=== PATIENT | female | born 1975 | race Caucasian/White ===

== ENCOUNTER 2018-02-27 01:34 | Emergency (ER) | payer OTHER ==
[~2018-02-27] VITALS: Ht 175.3 cm; Wt 86.2 kg
--- OUTSIDE RECORDS SUMMARY | ~2018-02-27 | XMS | Clinical Summary ---
Demographics + + + | Address | [address] | | | [place] [address] | + + + | Home Phone | | + + + | Preferred Language | Unknown | + + + | Marital Status | | + + + | Yarsanism Affiliation | Unknown | + + + | Race | Unknown | + + + | Ethnic Group | Unknown | + + + Author + + + | Author | [facility] | + + + | Organization | [facility] | + + + | Address | Unknown | + + + | Phone | Unavailable | + + + Support + + +---------+ + | Name | Relationship | Address | Phone | + + +---------+ + | Nuvia Manjarrez | ECON | Unknown | | + + +---------+ + | Ricki Vargas | ECON | Unknown | | + + +---------+ + Care Team Providers + +------+ + | Care Assistant Branch Manager Name | Role | Phone | + +------+ + PP | Unavailable | + +------+ + Allergies + + + + + + | Active Allergy | Reactions | Severity | Noted | Comments | | | | | Date | | + + + + + + | Penicillins | Hives | High | 06/16/20 | | | | | | 13 | | + + + + + + Current Medications + + +---------+---------+------+------+-------+ | Prescription | Sig. | Disp. | Refills | Star | End | Statu | | | | | | t | Date | s | | | | | | Date | | | + + +---------+---------+------+------+-------+ | | Take 1 tablet by | | | | | Activ | | HYDROcodone-acetamin | mouth every 6 (six) | | | | | e | | ophen (NORCO) 5-325 | hours as needed. | | | | | | | MG per tablet | | | | | | | + + +---------+---------+------+------+-------+ | predniSONE | Take 20 mg by mouth | | | | | Activ | | (DELTASONE) 20 MG | daily with | | | | | e | | tablet | breakfast. | | | | | | + + +---------+---------+------+------+-------+ | tizanidine | Take 1 capsule by | 30 | 0 | 09/1 | | Activ | | (ZANAFLEX) 4 MG | mouth 3 (three) | capsule | | 8/20 | | e | | capsuleIndications: | times daily as | | | 13 | | | | Cervical strain | needed for Muscle | | | | | | | | spasms. | | | | | | + + +---------+---------+------+------+-------+ Active Problems No known active problems Family History + + +------+ + | Medical History | Relation | Name | Comments | + + +------+ + | Diabetes | Father | | | + + +------+ + | High cholesterol | Father | | | + + +------+ + | Hypertension | Father | | | + + +------+ + + +------+--------+ + | Relation | Name | Status | Comments | + +------+--------+ + | Daughter | | Alive | | + +------+--------+ + | Daughter | | Alive | | + +------+--------+ + | Father | | Alive | | + +------+--------+ + | Mother | | Alive | | + +------+--------+ + | Sister | | Alive | | + +------+--------+ + | Son | | Alive | | + +------+--------+ + Social History + +-------+ +--------+------+ | Tobacco Use | Types | Packs/Day | Years | Date | | | | | Used | | + +-------+ +--------+------+ | Never Smoker | | | | | + +-------+ +--------+------+ + + +---------+ + | Alcohol Use | Drinks/We | oz/Week | Comments | | | ek | | | + + +---------+ + | No | | | | + + +---------+ + + + + | Sex Assigned at | Date Recorded | | | | + + + | Not on file | | + + + Last Filed Vital Signs + + + + | Vital Sign | Reading | Time Taken | + + + + | Blood Pressure | 102/70 | 06/16/2013 4:22 PM PDT | + + + + | Pulse | 64 | 06/16/2013 4:22 PM PDT | + + + + | Temperature | 36.7 C (98.1 F) | 06/16/2013 4:22 PM PDT | + + + + | Respiratory Rate | 16 | 06/16/2013 4:22 PM PDT | + + + + | Oxygen Saturation | 98% | 06/16/2013 4:22 PM PDT | + + + + | Inhaled Oxygen | - | - | | Concentration | | | + + + + | Weight | 93.4 kg (206 lb) | 06/16/2013 4:22 PM PDT | + + + + | Height | 171.5 cm (5' 7.5") | 06/16/2013 4:22 PM PDT | + + + + | Body Mass Index | 31.79 | 06/16/2013 4:22 PM PDT | + + + + Plan of Treatment + + + + + | Health Maintenance | Due Date | Last Done | Comments | + + + + + | Vaccine: | | | | | Dtap/Tdap/Td (1 - | 6 | | | | Tdap) | | | | + + + + + | Cervical Cancer | | | | | Screening (Pap) | 8 | | | + + + + + | Vaccine: Influenza | | | | | (Season Ended) | 8 | | | + + + + + Results Not on filefrom Last 3 Months
--- OUTSIDE RECORDS SUMMARY | ~2018-02-27 | XMS | Clinical Summary ---
Demographics + + + | Address | [address] | | | [place] [address] | + + + | Home Phone | | + + + | Preferred Language | Unknown | + + + | Marital Status | | + + + | Restorationism Affiliation | Unknown | + + + | Race | Unknown | + + + | Ethnic Group | Unknown | + + + Author + + + | Author | [facility] | + + + | Organization | [facility] | + + + | Address [...] Team Providers + +------+ + | Care Expert Medical Writer Name | Role | Phone | + [...]
[~2018-02-27 01:34] MED LIST: ALEVE220 MG PO; CLINDAMYCIN HC150 MG PO; CYCLOBENZAPRINE10 MG PO; IBUPROFEN400 MG PO; MELOXICAM15 MG PO
[2018-02-27] MEDS ORDERED: SERTRALINE HCL50 MG PO (01:49)
== END 2018-02-27 02:52 | disposition home or self-care (01) ==
LOC: ED 01:34
DX: J20.9 Acute bronchitis, unspecified (principal); Z88.0 Allergy status to penicillin; Z79.899 Other long term (current) drug therapy
CPT/HCPCS: 99282

== ENCOUNTER 2018-03-17 03:45 | Emergency (ER) | payer OTHER ==
[~2018-03-17] VITALS: Ht 175.3 cm; Wt 90.7 kg
--- OUTSIDE RECORDS SUMMARY | ~2018-03-17 | XMS | Clinical Summary ---
Demographics + + + | Address | [address] | | | [place] [address] | + + + | Home Phone | | + + + | Preferred Language | Unknown | + + + | Marital Status | | + + + | Yazdanism Affiliation | Unknown | + + + | Race | Unknown | + + + | Ethnic Group | Unknown | + + + Author + + + | Author | [facility] [facility] | + + + | Organization | [facility] | + + + | Address [...] Team Providers + +------+ + | Care Elementary School Band Director Name | Role | Phone | + [...]
--- OUTSIDE RECORDS SUMMARY | ~2018-03-17 | XMS | Clinical Summary ---
Demographics + + + | Address | [address] | | | [place] [address] | + + + | Home Phone | | + + + | Preferred Language | Unknown | + + + | Marital Status | | + + + | Synagogue Affiliation | Unknown | + + + | Race | Unknown | + + + | Ethnic Group | Unknown | + + + Author + + + | Author | [facility] [facility] | + + + | Organization | [facility] | + + + | Address [...] Team Providers + +------+ + | Care Software Configuration Specialist Name | Role | Phone | + [...]
[~2018-03-17 03:45] MED LIST changes: +SERTRALINE HCL50 MG PO
[2018-03-17] MEDS ORDERED: MOBIC15 MG PO (03:56)
--- NOTE | 2018-03-17 13:32 | EKG ---
[facility] [address] [place], [place] [address] Signed Unusual P axis, possible ectopic atrial rhythm Left axis deviation Abnormal ECG When compared with ECG of 17-MAR-2018 03:54, (Unconfirmed) No significant change was found Confirmed by BHARAT GAMEZ MD ([id number]) on 03/17/2018 1:32:41 PM Electronically Signed By: BHARAT GAMEZ MD 03/17/18 1332 PATIENT NAME: LUPIS RODAS Electrocardiogram DATE OF : 79 PHYSICIAN: BHARAT GAMEZ MD REPORT #: [id number] REPORT IS CONFIDENTIAL AND NOT TO BE RELEASED WITHOUT AUTHORIZATION
--- NOTE | 2018-03-17 13:32 | EKG ---
[facility] [address] [facility] [place] [address] Signed Unusual P axis, possible ectopic atrial rhythm Left axis deviation Abnormal ECG No previous ECGs available Confirmed by BHARAT GAMEZ MD ([id number]) on 03/17/2018 1:32:06 PM Electronically Signed By: BHARAT GAMEZ MD 03/17/18 1332 PATIENT NAME: LUPIS RODAS Electrocardiogram DATE OF : [birth year] PHYSICIAN: BHARAT GAMEZ MD REPORT #: [id number] REPORT IS CONFIDENTIAL AND NOT TO BE RELEASED WITHOUT AUTHORIZATION
== END 2018-03-17 06:54 | disposition home or self-care (01) ==
LOC: ED 03:45
DX: R06.02 Shortness of breath (principal); D50.9 Iron deficiency anemia, unspecified; Z88.0 Allergy status to penicillin; Z79.899 Other long term (current) drug therapy
CPT/HCPCS: 71046; 80048; 83735; 85025; 93005; 93010; 99283

== ENCOUNTER 2018-04-13 08:39 | Inpatient (IN) | payer OTHER ==
[~2018-04-13] VITALS: Ht 172.7 cm; Wt 94.8 kg
[~2018-04-13 08:39] MED LIST changes: +MOBIC15 MG PO
--- NOTE | 2018-04-13 16:00 | HP ---
[facility] [address] [place], [place] [address] Signed ADMISSION DATE: 04/13/2018 ADMITTING DIAGNOSIS: Acute calculous cholecystitis. HISTORY OF PRESENT ILLNESS: This 42-year-old obese woman awakened at approximately 4:00 a.m. today with a significant epigastric and right subcostal pain. She had some associated nausea, but no vomiting. She presented to the emergency room where she was thoroughly evaluated by Dr. Erazo and a gallbladder ultrasound was obtained. Lab studies were obtained as well. The gallbladder ultrasound showed a single 16 mm gallstone wedged in the infundibulum of the gallbladder with no other sign of stone. Her lab studies were normal including CBC and Chem profile. The patient has not had antecedent attacks of pain of this type. No other particular issues related to the gastrointestinal tract. She denies any blood per rectum or hematemesis. She has no family history of gallbladder disease that she is aware of. PAST MEDICAL HISTORY: Significant only for obesity and anxiety. MEDICATIONS: Include Zoloft. She also takes meloxicam for musculoskeletal pain of her neck. SOCIAL HISTORY: She is . Her accompanies her at this time. 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 REVIEW OF SYSTEMS: She denies any shortness of breath or chest pain. She has had no dysphagia, dysuria, or hematemesis. Denies blood per rectum. PHYSICAL EXAMINATION: GENERAL: Somewhat obese white woman, looks to be uncomfortable. HEENT: Mucous membranes are dry. She is now started on her 2nd L of lactated Ringer solution. Trachea is midline. CHEST: Clear. HEART: Regular without murmur. Electronically Signed By: AYSHA MERCHANT MD 04/13/18 1600 PATIENT NAME: LUPIS RODAS HISTORY AND PHYSICAL DATE OF : [birth year] REPORT #: [id number] PHYSICIAN: AYSHA MERCHANT MD PCP: LEILA NELSON REPORT IS CONFIDENTIAL AND NOT TO BE RELEASED WITHOUT AUTHORIZATION [facility] [address], [place] [address] Signed ABDOMEN: Somewhat obese, but soft. There is a vague tenderness in the upper abdomen. No focal mass, tenderness, or ascites. EXTREMITIES: Show no clubbing, cyanosis, or edema. ASSESSMENT: I reviewed her ultrasound showing a somewhat dilated gallbladder and what appears to be a stone wedged in the infundibulum of the gallbladder near the cystic duct. The clinical symptoms and history are consistent with acute calculous cholecystitis. I discussed the pathophysiology of this problem with the patient and her and they understand. PLAN: We will admit for further rehydration, antibiotic administration, and consideration for cholecystectomy preferred by laparoscopic approach. The risks of bleeding, infection, bile duct injury, need for open procedure, failure to cure her symptoms and need for other indicated procedures were reviewed in detail. She understands and wished to proceed. MD ROLAND Higgins/ROSS /[id number] cc: Chad Erazo Copies: CLEANING VALIDATION CONSULTANT,CHAD ~ Electronically Signed By: AYSHA MERCHANT MD 04/13/18 1600 PATIENT NAME: LUPIS RODAS HISTORY AND PHYSICAL DATE OF : [birth year] REPORT #: [id number] PHYSICIAN: AYSHA MERCHANT MD PCP: LEILA NELSON REPORT IS CONFIDENTIAL AND NOT TO BE RELEASED WITHOUT AUTHORIZATION
[2018-04-14] MEDS ORDERED: MOTRIN IB200 MG PO (08:06)
[2018-04-14] MEDS ORDERED: OXYCODON-ACETA1 EAC2 PO (08:06)
[2018-04-14] MEDS ORDERED: TYLENOL325 MG PO (08:06)
--- NOTE | 2018-04-14 08:39 | OR ---
[facility] [address] [place], [place] [address] Signed DATE OF OPERATION: 04/13/2018 SURGEON: Aysha Merchant MD PREOPERATIVE DIAGNOSES: 1. Acute calculous cholecystitis. 2. Morbid obesity. POSTOPERATIVE DIAGNOSES: 1. Acute calculous cholecystitis. 2. Morbid obesity. PROCEDURES: 1. Laparoscopic cholecystectomy with intraoperative cholangiogram (prolonged, complicated, difficult). 2. Surgeon-directed fluoroscopy. ANESTHESIA: General endotracheal, Maximino Manuel, SENIOR GRADUATE ADVISOR, and local 20 mL of 0.25% Marcaine with epinephrine. INDICATION: This 42-year-old obese woman presented to the emergency room earlier in the day, had been awakened by severe right subcostal and epigastric pain at approximately 4:00 a.m. She had some associated nausea, but no vomiting. She was evaluated by Dr. Wright and a gallbladder ultrasound was performed showing a distended gallbladder with a relatively large stone wedged in the infundibulum. She has been fluid resuscitated, given intravenous antibiotics, and parenteral pain medication, and is admitted at this time to undergo cholecystectomy preferred by laparoscopic approach. The risks of bleeding, infection, bile duct injury, need for open procedure and other unforeseen complications were reviewed in detail. She understands and wished to proceed. FINDINGS: Indeed, the gallbladder was quite markedly inflamed and distended and markedly edematous. She did have fatty infiltration of the liver. The operation was prolonged, complicated, and difficult on that basis, lasting three times longer than usual. The gallbladder itself once excised showed profound cholesterolosis of the mucosa and a single oblong gallstone about 2 cm in size. Intraoperative cholangiogram was normal. Electronically Signed By: AYSHA MERCHANT MD 04/14/18 0839 PATIENT NAME: LUPIS RODAS OPERATIVE REPORT DATE OF : [birth year] REPORT #: [id number] PHYSICIAN: AYSHA MERCHANT MD PCP: LEILA NELSON REPORT IS CONFIDENTIAL AND NOT TO BE RELEASED WITHOUT AUTHORIZATION [facility] [address] [place], [place] [address] Signed There were no other findings of concern. A small amount of bleeding of the liver parenchyma to the right side of the falciform ligament was noted and well secured with cautery. DESCRIPTION OF PROCEDURE: The patient was brought to the operating room, given a general endotracheal anesthetic. Preoperative antibiotic Ancef was given. Sequential compression stockings were used. Heparin was subcutaneously administered by the medical advisor prior to operation. The abdomen was prepared with chlorhexidine solution and draped sterilely after satisfactory general endotracheal anesthesia. The abdomen was sterilely draped and an infraumbilical incision was made and using an open Mily cannula technique, pneumoperitoneum was achieved to a level of 14 mmHg of carbon dioxide gas. Intraabdominal inspection showed no sign of ascites or carcinomatosis. She had a considerable amount of fat and obesity. The liver was edematous and fatty infiltrated. The gallbladder was markedly inflamed. Three additional trocars were placed in usual configuration in the subxiphoid, right midclavicular, and right anterior axillary line. The gallbladder was grasped and elevated and found to be densely adherent to omental adhesions inferiorly. Further elevation of the gallbladder allowed for takedown of the omental adhesions with blunt dissection, ultimately allowing for better elevation of the gallbladder. There was marked edema of the infundibulum of the gallbladder and duodenum and omental adhesions were then taken down with blunt electrocautery dissection more fully. Given her plethoric abdomen another 5 mm epigastric port was placed and a fan retractor placed. This allowed for better retraction of the gallbladder laterally. Using blunt electrocautery dissection, the triangle of Calot was ultimately well identified. The cystic duct was relatively large, compared to many, but appeared soft. A stone was wedged in the infundibulum. It was quite clear clinically. Clips were applied to cystic arterial branches and once the cystic duct was fully identified and the critical view assured, a transverse choledochotomy made in the cystic duct. Egress of clear bile was noted from the cystic duct. Using an Mo type cholangiocatheter, intraoperative cholangiography was undertaken showing free flow of contrast in the biliary tree with prompt emptying into the duodenum. The catheter was removed, and the cystic duct was triply clipped and divided, and the gallbladder dissected free in a retrograde fashion. The avascular plane, which was markedly edematous was easily maintained, though there was still a fair number of blood vessels requiring security with clips. Gallbladder was ultimately excised and placed in an Endobag and extracted through the infraumbilical port site without problem. Opening of the gallbladder on the back table showed a purulent mucoid gallbladder fluid. A single oblong stone about 2 cm in size was noted. There was no sign of malignancy. Irrigation was undertaken in the subhepatic space. There had been some Electronically Signed By: AYSHA MERCHANT MD 04/14/18 0839 PATIENT NAME: LUPIS RODAS OPERATIVE REPORT DATE OF : 79 REPORT #: [id number] PHYSICIAN: AYSHA MERCHANT MD PCP: LEILA NELSON REPORT IS CONFIDENTIAL AND NOT TO BE RELEASED WITHOUT AUTHORIZATION [place] [id number] [place] [address] Signed distraction of the capsule of the liver in the medial segment of the left lobe of the liver next to the falciform ligament on the edge of the liver, and this was secured with electrocautery. Irrigation was undertaken in the subhepatic space, showed no sign of bile leak, bleeding, or other problem. The trocars were then removed under direct visualization showing no sign of bleeding. The infraumbilical fascial incision was reapproximated with interrupted 0 Vicryl suture. All wounds were infiltrated with 0.25% Marcaine with epinephrine, 20 mL in total. The skin was then closed with interrupted 3-0 Vicryl. Steri-Strips were applied. The patient was ultimately extubated and transferred to recovery room in good condition having suffered no complication. Sponge, needle, and instrument counts were reported as correct x3. MD ROLAND Higgins/ROSS /[id number] cc: Chad Wright Copies: CHAD WRIGHT ~ Electronically Signed By: AYSHA MERCHANT MD 04/14/18 0839 PATIENT NAME: LUPIS RODAS OPERATIVE REPORT DATE OF : [birth year] REPORT #: [id number] PHYSICIAN: AYSHA MERCHANT MD PCP: LEILA NELSON REPORT IS CONFIDENTIAL AND NOT TO BE RELEASED WITHOUT AUTHORIZATION
== END 2018-04-14 10:05 | disposition home or self-care (01) | DRG 419 ==
LOC: ED 08:39 → MS 08:40 → ED 08:40 → MS 12:18
PROVIDERS: ADMIT Surgery
PROC: BF101ZZ Fluoroscopy of Bile Ducts using Low Osmolar Contrast (ICD-10-PCS; 2018-04-13)
PROC: 0FT44ZZ Resection of Gallbladder, Percutaneous Endoscopic Approach (ICD-10-PCS; principal; 2018-04-13 18:00)
DX: K80.00 Calculus of gallbladder with acute cholecystitis without obstruction (principal); G89.29 Other chronic pain; M54.2 Cervicalgia; E66.01 Morbid (severe) obesity due to excess calories; F41.9 Anxiety disorder, unspecified; K76.0 Fatty (change of) liver, not elsewhere classified; Z88.0 Allergy status to penicillin; Z79.1 Long term (current) use of non-steroidal anti-inflammatories (NSAID); Z79.899 Other long term (current) drug therapy; Z68.31 Body mass index [BMI] 31.0-31.9, adult
CPT/HCPCS: 00790; 74300; 76705; 80053; 81001; 83690; 84703; 85025; 96361; 96374; 96375; 99285; G0378; J0690; J1100; J1170; J1885; J2405; J2704; J2765; J3010; J7120; Q9967

== ENCOUNTER 2019-01-03 09:14 | Emergency (ER) | payer SELFPAY ==
[~2019-01-03] VITALS: Ht 172.7 cm; Wt 94.8 kg
[~2019-01-03 09:14] MED LIST changes: +MOTRIN IB200 MG PO; +OXYCODON-ACETA1 EAC2 PO; +TYLENOL325 MG PO
== END 2019-01-03 09:55 | disposition home or self-care (01) ==
LOC: ED 09:14
DX: R04.2 Hemoptysis (principal)

== ENCOUNTER 2019-03-25 20:59 | Emergency (ER) | payer OTHER ==
[~2019-03-25] VITALS: Ht 172.7 cm; Wt 99.5 kg
--- OUTSIDE RECORDS SUMMARY | ~2019-03-25 | XMS | Clinical Summary ---
Demographics + + + | Address | [address] | | | [place] [address] | + + + | Home Phone | | + + + | Preferred Language | Unknown | + + + | Marital Status | | + + + | Lutheran Affiliation | Unknown | + + + | Race | Unknown | + + + | Ethnic Group | Unknown | + + + Author + + + | Author | [facility] | + + + | Organization | [facility] | + + + | Address | [...] Team Providers + +------+ + | Care Oven Laborer Name | Role | Phone | + +------+ + | Nav Jeff | PP | | + +------+ + Allergies + + [...] | | | | Screening (Pap) | 7 | | | + + + + + | Vaccine: Influenza | | | | | (Season Ended) | 9 | | | + + + + + Results Not on filefrom Last 3 Months Insurance +--------+--------+ +------+ +---------+ | Payer | Benefi | Subscriber | Type | Phone | Address | | | t Plan | ID | | | | | | / | | | | | | | Group | | | | | +--------+--------+ +------+ +---------+ | [employer]URIS | HMA | [id number] | | [phone] | | | INSURA | 8 | | [phone] | | | | NCE | | | | | +--------+--------+ +------+ +---------+ + +--------+ +--------+ + + | Guarantor Name | Accoun | Relation to | Date | Phone | Billing Address | | | t Type | Patient | of | | | | | | | | | | + +--------+ +--------+ + + | LUPIS VARGAS | Person | Self [birth year] Home: | [address] | | | al/Fam | | 1974 | [phone] | [place] | | | [place] | | | [phone] | [phone] | + +--------+ +--------+ + +
--- OUTSIDE RECORDS SUMMARY | ~2019-03-25 | XMS | Clinical Summary ---
Demographics + + + | Address | [address] | | | [place] [address] | + + + | Home Phone | | + + + | Preferred Language | Unknown | + + + | Marital Status | | + + + | Jewish Affiliation | Unknown | + + + | Race | Unknown | + + + | Ethnic Group | Unknown | + + + Author + + + | Author | [facility] | + + + | Organization | [facility] | + + + | Address | [...] Team Providers + +------+ + | Care Trackwalker Name | Role | Phone | + [...] +------+ +---------+ | ASURIS | HMA | [id number] | | [phone] | | | [...] | | | [place] | | | [phone] | + +--------+ +--------+ + +
--- NOTE | 2019-03-26 06:19 | EKG ---
[facility] [address] [facility] [place] [address] Signed Normal sinus rhythm Left anterior fascicular block Abnormal ECG When compared with ECG of 17-MAR-2018 05:18, Sinus rhythm has replaced Ectopic atrial rhythm Confirmed by NORMAN MANZANARES MD ([id number]) on 03/26/2019 6:19:33 AM Electronically Signed By: NORMAN MANZANARES MD 03/26/19 0619 PATIENT NAME: LUPIS RODAS EFRAIN Electrocardiogram DATE OF : [birth year] PHYSICIAN: NORMAN MANZANARES MD REPORT #: [id number] REPORT IS CONFIDENTIAL AND NOT TO BE RELEASED WITHOUT AUTHORIZATION
== END 2019-03-25 23:30 | disposition home or self-care (01) ==
LOC: ED 20:59
DX: R42 Dizziness and giddiness (principal); Z90.49 Acquired absence of other specified parts of digestive tract; Z88.0 Allergy status to penicillin; Z79.899 Other long term (current) drug therapy
CPT/HCPCS: 70450; 80053; 81001; 85025; 93005; 93010; 96360; 99284-25; J7030

== ENCOUNTER 2019-07-12 21:06 | Emergency (ER) | payer OTHER ==
[~2019-07-12] VITALS: Ht 170.2 cm; Wt 94.9 kg
[~2019-07-12 21:06] MED LIST changes: +SERTRALINE HCL100 MG PO
--- OUTSIDE RECORDS SUMMARY | 2019-07-12 21:08 | XMS ---
PreManage Notification: LUPIS RODAS Security Criminalist Events No recent Security Events currently on file CRITERIA MET - [facility] - 2 Visits in 30 Days CARE PROVIDERS LEILA NELSON Primary Care Current PHONE: [phone] Maria Dolores has no Care Guidelines for this patient. EJuana VISIT COUNT (12 MO.) 5 [facility] TOTAL 5 NOTE: Visits indicate total known visits. 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) drug therapy - Pain in left foot 05/23/2019 12:15 [facility] TYPE: Emergency COMPLAINT: - LEFT EYE PAIN DIAGNOSES: - Striking against or struck by other objects, initial encounter - Allergy status to penicillin - Injury of conjunctiva and corneal abrasion without foreign body, left eye, initial encounter - Acquired absence of other specified parts of digestive tract - Other care home (current) drug therapy - Ocular pain, left eye 03/25/2019 20:59 [facility] TYPE: Emergency COMPLAINT: - LIGHTHEADED DIAGNOSES: - Acquired absence of other specified parts of digestive tract - Dizziness and giddiness - Other care home (current) drug therapy - Allergy status to penicillin 01/03/2019 09:14 [facility] TYPE: Emergency COMPLAINT: - COUGHING BLOOD DIAGNOSES: - Hemoptysis - Cough INPATIENT VISIT TRACKING (12 MO.) No inpatient visits to display in this time frame [email or web address]
== END 2019-07-12 23:05 | disposition home or self-care (01) ==
LOC: ED 21:06
PROC: 2W3DX1Z Immobilization of Left Lower Arm using Splint (ICD-10-PCS; principal; 2019-07-12)
DX: M25.532 Pain in left wrist (principal); Z88.0 Allergy status to penicillin; Z79.899 Other long term (current) drug therapy
CPT/HCPCS: 29125; 73110; 99283-25

== ENCOUNTER 2019-10-22 01:10 | Emergency (ER) | payer SELFPAY ==
[~2019-10-22] VITALS: Ht 170.2 cm; Wt 97.7 kg
--- OUTSIDE RECORDS SUMMARY | ~2019-10-22 | XMS | Clinical Summary ---
Demographics + + + | Address | [address] | | | [place] [address] | + + + | Home Phone | | + + + | Preferred Language | Unknown | + + + | Marital Status | | + + + | Adventist Affiliation | Unknown | + + + | Race | Unknown | + + + | Ethnic Group | Unknown | + + + Author + + + | Author | [employer] (Historical as of | | | 06-28-19) | + + + | Organization | [facility] (Historical as of | | | 06-28-19) | + + + | Address | [...] Team Providers + +------+ + | Care Senior Premium Auditor Name | Role | Phone | + [...] Vaccine: Influenza | | | | | (#1) | 9 | | | + + [...] +------+ +---------+ | ASURIS | HMA | [id number] | | [phone] | | | [...] | [birth year] | Home: | [address] | | | al/Fam | | 1975 | [phone] | [place] | | | [place] | | | [phone] | + +--------+ +--------+ + +
--- OUTSIDE RECORDS SUMMARY | ~2019-10-22 | XMS | Clinical Summary ---
Demographics + + + | Address | [address] | | | [place] [address] | + + + | Home Phone | | + + + | Preferred Language | Unknown | + + + | Marital Status | | + + + | Orthodoxy Affiliation | Unknown | + + + | Race | Unknown | + + + | Ethnic Group | Unknown | + + + Author + + + | Author | [email or web address] (Historical as of | | | 06-28-19) | + + + | Organization | [facility] [employer] (Historical as of | | | 06-28-19) [...] Team Providers + +------+ + | Care Web Marketing Coordinator Name | Role | Phone | + [...] +------+ +---------+ | ASURIS | HMA | [id number] | | [phone] | | | [...] | [birth year] | Home: | [address] | | | al/Fam | | 1975 | [phone] | [place] | | | [place] | | | [phone] | + +--------+ +--------+ + +
--- OUTSIDE RECORDS SUMMARY | 2019-10-22 01:12 | XMS ---
PreManage Notification: LUPIS RODAS Security Business Administration Professor Events No recent Security Events currently on file CRITERIA MET - [facility] - Has Care Guidelines CARE PROVIDERS LEILA NELSON Nurse Practitioner: Family 07/15/2019-Current PHONE: Unknown LEILA NELSON Primary Care Current PHONE: [phone] Maria Dolores has no Care Guidelines for this patient. Care History Medical/Surgical 07/15/2019 [facility] - Patient is currently established with [facility]. If patient is seen in the ED during business hours. Please contact CHWs at [facility]. Care Recommendation: This patient has had 5 or more Emergency Department visits in the last 12 months.\T\nbsp; Patient requires education on the scope and purpose of the ED as an acute care provider not a Primary Care Provider and should not be utilized for chronic conditions.\T\nbsp; These are guidelines and the provider should exercise clinical judgment when providing care. E.D. VISIT COUNT (12 MO.) 6 [facility] TOTAL 6 NOTE: Visits indicate total known visits. ED/UCC VISIT TRACKING (12 MO.) 10/22/2019 01:10 [facility] TYPE: Emergency COMPLAINT: - COUGH 07/12/2019 21:06 [facility] TYPE: Emergency COMPLAINT: - WRIST PAIN INJURY DIAGNOSES: - Pain in left wrist - Other shelter (current) drug therapy - Allergy status to penicillin 06/25/2019 11:38 [facility] TYPE: Emergency COMPLAINT: - LT FOOT PAIN,NON INJURY DIAGNOSES: - Allergy status to penicillin - Other shelter (current) drug therapy - Pain in left foot 05/23/2019 12:15 [facility] TYPE: Emergency COMPLAINT: - LEFT EYE PAIN DIAGNOSES: - Striking against or struck by other objects, init encntr - Allergy status to penicillin - Inj conjunctiva and corneal abrasion w/o fb, left eye, init - Acquired absence of other specified parts of digestive tract - Other shelter (current) drug therapy - Ocular pain, left eye 03/25/2019 20:59 [facility] TYPE: Emergency COMPLAINT: - LIGHTHEADED DIAGNOSES: - Acquired absence of other specified parts of digestive tract - Dizziness and giddiness - Other salvage determiner (current) drug therapy - Allergy status to penicillin 01/03/2019 09:14 [facility] TYPE: Emergency COMPLAINT: - COUGHING BLOOD DIAGNOSES: - Hemoptysis - Cough INPATIENT VISIT TRACKING (12 MO.) No inpatient visits to display in this time frame [email or web address]
[2019-10-22] MEDS ORDERED: MELOXICAM15 MG PO (01:18)
== END 2019-10-22 01:44 | disposition home or self-care (01) ==
LOC: ED 01:10
DX: J06.9 Acute upper respiratory infection, unspecified (principal); Z88.0 Allergy status to penicillin; Z79.899 Other long term (current) drug therapy
CPT/HCPCS: 99283

== ENCOUNTER 2020-05-08 19:58 | Emergency (ER) | payer OTHER ==
[~2020-05-08] VITALS: Ht 170.2 cm; Wt 97.2 kg
--- OUTSIDE RECORDS SUMMARY | 2020-05-08 20:00 | XMS ---
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 Care History Medical/Surgical 10/22/2019 [facility] Patient has 3 month follow up with Nav Nelson.\T\nbsp; Left voicemail for call back to discuss appropriate use of ED. 07/15/2019 [facility] - Patient is currently established with [facility]. If patient is seen in the ED during business hours. Please contact CHWs at [facility]. Care Recommendation: This patient has had 5 or more Emergency Department visits in the last 12 months.\T\nbsp; Patient requires education on the scope and purpose of the ED as an acute care provider not a Primary Care Provider and should not be utilized for chronic conditions.\T\nbsp; These are guidelines and the provider should exercise clinical judgment when providing care. Wanda VISIT COUNT (12 MO.) 1 [facility] 5 DAVID Bradley TOTAL 6 NOTE: Visits indicate total known visits. ED/UCC VISIT TRACKING (12 MO.) 05/08/2020 19:59 [facility] [place] TYPE: Emergency COMPLAINT: - SKIN PROBLEM 11/01/2019 20:49 [facility] [place] TYPE: Emergency DIAGNOSES: - EYE PROBLEM - Other specified disorders of eye and adnexa 10/22/2019 01:10 [facility] [place] TYPE: Emergency COMPLAINT: - COUGH DIAGNOSES: - Cough - Acute upper respiratory infection, unspecified - Other care home (current) drug therapy - Allergy status to penicillin 07/12/2019 21:06 [facility] [place] TYPE: Emergency COMPLAINT: - WRIST PAIN INJURY DIAGNOSES: - Pain in left wrist - Other care home (current) drug therapy - Allergy status to penicillin 06/25/2019 11:38 [facility] [place] TYPE: Emergency COMPLAINT: - LT FOOT PAIN,NON INJURY DIAGNOSES: - Allergy status to penicillin - Other extermination inspector (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 [place] TYPE: Emergency COMPLAINT: - LEFT EYE PAIN DIAGNOSES: - Striking against or struck by other objects, initial encounte - Allergy status to penicillin - Injury of conjunctiva and corneal abrasion without foreign conor - Acquired absence of other specified parts of digestive tract - Other care home (current) drug therapy - Ocular pain, left eye INPATIENT VISIT TRACKING (12 MO.) No inpatient visits to display in this time frame [email or web address]
[2020-05-08] MEDS ORDERED: CETIRIZINE HCL10 MG PO (20:16)
[2020-05-08] MEDS ORDERED: DICLOFENAC SODI75 MG PO (22:55)
== END 2020-05-08 23:11 | disposition home or self-care (01) ==
LOC: ED 19:58
DX: L55.9 Sunburn, unspecified (principal); Z88.0 Allergy status to penicillin; Z79.899 Other long term (current) drug therapy
CPT/HCPCS: 99282